=== PATIENT | female | born 1950 | race Caucasian/White ===

== ENCOUNTER → 2019-09-13 | Outpatient (CLI) | payer MEDICARE ==
--- NOTE | 2019-09-22 12:52 | RAD ---
INDICATION: 68 years of age asymptomatic female patient presents for screening mammography. TECHNIQUE: Full field craniocaudal and mediolateral oblique images of both breasts were obtained using digital technique with tomosynthesis and also analyzed with computer-aided detection software. COMPARISON: None available. BREAST COMPOSITION: Category B: There are scattered fibroglandular densities. FINDINGS: Benign calcifications are present. No suspicious masses, microcalcifications or architectural distortion is present to suggest malignancy in either breast. The visualized axillae are unremarkable. IMPRESSION: No mammographic evidence of malignancy. RECOMMENDATION: Annual screening mammography is recommended, unless clinically indicated sooner based on symptoms or change in physical exam. BIRADS 2: BENIGN Electronically signed by: Laith Jameson MD (09/22/2019 12:49 PM) [facility]
== END | disposition home or self-care (01) ==
LOC: MAMMO 09:41
PROVIDERS: ATTEND Specialist
DX: Z12.31 Encounter for screening mammogram for malignant neoplasm of breast (principal)
CPT/HCPCS: 77063; 77067

== ENCOUNTER 2019-10-19 20:24 | Emergency (ER) | payer MEDICARE ==
[~2019-10-19] VITALS: Ht 152.4 cm; Wt 68.2 kg
[2019-10-19] MEDS ORDERED: methylPREDNISolone SOD SUCC PF 125 MG/2 ML VIAL. IV ONE (20:45)
[2019-10-19] MEDS ORDERED: IV NORMAL SALINE 1,000ML 1,000 ML IV ONE (20:45)
[2019-10-19] MEDS ORDERED: FAMOTIDINE 20 MG/2 ML VIAL IVP ONE (20:45)
[2019-10-19] MEDS ORDERED: ONDANSETRON PF 4 MG/2 ML VIAL. ONE (20:53)
[2019-10-19 21:03] VITALS: BP 124/80
--- NOTE | 2019-10-19 22:05 | PHYS DOC ---
Past History Past Medical History: COPD, High Cholesterol Past Surgical History: Hysterectomy Alcohol Use: None Adult General Chief Complaint Chief Complaint: INSECT BITE HPI HPI Patient is a 68-year-old female who presents status post bee sting. Patient reports having bee get stuck in her right sandal and subsequently stinging the ventral portion of her right foot. Patient immediately put baking soda on area, then put Benadryl cream on area, then took 50 mg p.o. Benadryl. Patient reported redness of her foot increased in size which subsequently caused her to have heightened feelings of anxiety and shortness of breath prompting her to report to our ER for evaluation. Patient reports being stung by a bee in the past but never had this type of reaction. She denies any history of anaphylaxis. She has never been intubated. Review of Systems Review of Systems Fourteen body systems of review of systems have been reviewed. See HPI for pertinent positives and negative responses, other castillo all other systems are negative, non-pertinent or non-contributory Current Medications Current Medications Current Medications Medications (Trade) Dose Ordered Sig/Shukri Start Time Stop Time Status Last Admin Dose Admin Famotidine (Pepcid Vial) 20 mg 1X ONCE 10/19/19 20:45 10/19/19 20:47 DC 10/19/19 20:48 20 MG Methylprednisolone Sodium Succinate (SOLU-Medrol 125MG VIAL) 125 mg 1X ONCE 10/19/19 20:45 10/19/19 20:47 DC 10/19/19 20:48 125 MG Ondansetron HCl (Zofran) 4 mg STK-MED ONCE 10/19/19 20:53 10/19/19 20:53 DC Sodium Chloride 1,000 ml @ 1,000 mls/hr 1X ONCE 10/19/19 20:45 10/19/19 21:44 DC 10/19/19 20:48 1,000 MLS/HR Allergies Allergies Allergies Coded Allergies Type Severity Reaction Last Updated Verified No Known Drug Allergies 10/19/19 No Physical Exam Physical Exam Constitutional: Well developed, well nourished, moderate distress, non-toxic appearance. HENT: Normocephalic, atraumatic, bilateral external ears normal, oropharynx moist, no oral exudates, nose normal. Patent airway, no signs suggestive of potential compromise Eyes: PERRLA, EOMI, conjunctiva normal, no discharge. Neck: Normal range of motion, no tenderness, supple, no stridor. Cardiovascular: Heart rate regular, sinus rhythm, no murmurs rubs or gallops Lungs & Thorax: Bilateral breath sounds clear to auscultation Abdomen: Bowel sounds normal, soft, no tenderness, no masses, no pulsatile masses. Nonsurgical abdomen, no peritoneal signs Skin: Warm, dry, no rash. Well-appearing site of bee sting with greater than 5 cm erythema surrounding site, no crepitus, no palpable exudates, no fluctuant mass underneath site of inoculation, no streaking Back: No tenderness, no CVA tenderness. Extremities: No tenderness, no cyanosis, no clubbing, ROM intact, no edema. 2+ pulses bilateral upper and lower extremities Neurologic: Alert and oriented X 3, grossly normal motor & sensory function, no focal deficits noted. Psychologic: Affect normal, judgement normal, mood normal. Current Patient Data Vital Signs Vital Signs Date Time Temp Pulse Resp B/P (MAP) Pulse Ox O2 Delivery O2 Flow Rate FiO2 10/19/19 21:03 98.7 77 28 124/80 (95) 94 EKG EKG [] Radiology/Procedures Radiology/Procedures [] Course & Med Decision Making Course & Med Decision Making Patient seen and evaluated by myself on immediate ED arrival Airway patent, breathing unlabored, vital signs obtained and hemodynamically stable, IV access obtained Comprehensive history and physical exam obtained Decision to administer IV fluids, IV famotidine, and IV Solu-Medrol in light of patient pretreating prior to arrival with 50 mg p.o. Benadryl Patient responded to above therapy well. Reports significant improvement in symptoms during ER stay. Patient reevaluated several times by various members of healthcare team and ultimately felt stable for discharge ED course discussed at length with patient, I to agreed patient was fit for discharge Patient has good follow-up with outpatient PCP. Advised patient to follow-up in upcoming 1 to 7 days Strict return precautions discussed with good understanding by patient. Specifically discussed anaphylaxis at length in addition to less likely development of secondary skin infection at site of bee sting All questions and concerns addressed prior to departure home with in stable condition Saraon Disclaimer Dragon Disclaimer This electronic medical record was generated, in whole or in part, using a voice recognition dictation system. Departure Departure: Impression: Primary Impression: Bee sting reaction Disposition: HOME/RESIDENCE PRIOR TO ADM Condition: IMPROVED Referrals: JUSTUS PATTON MD (PCP) Patient Instructions: Bee, Wasp, or Hornet Sting Additional Instructions: You have been evaluated for your allergic reaction from bee sting. You have been given medications including p.o. Benadryl prior to arrival and subsequently given IV steroids, IV famotidine, and IV fluids. You have been observed in the Emergency Department and it appears that your symptoms will not worsen. As discussed prior to ER departure, please call your primary care physician first thing tomorrow morning to schedule appointment in upcoming 1 to 14 days Return to the Emergency Department if you experience difficulty breathing or swallowing, recurrent vomiting, rashes, lip/mouth/tongue swelling, persistent fevers or for any other concerning symptoms. We marked your foot to evaluate progression in redness. As discussed, it is low likelihood that this bee sting will develop into a subsequent skin infection but it is possible. Please continue to monitor this and call your PCP or our emergency department if you have any questions or concerns. It was a pleasure to take care of you this evening and I hope you continue to feel better! Justification of Admission: Justification of Admission: Justification of Admission Dx: N/A PORFIRIO STEINBERG DO Oct 19, 2019 22:05
== END 2019-10-19 22:13 | disposition home or self-care (01) ==
LOC: ER 20:24
DX: T63.441A Toxic effect of venom of bees, accidental (unintentional), initial encounter (principal); F41.9 Anxiety disorder, unspecified; R06.02 Shortness of breath; J44.9 Chronic obstructive pulmonary disease, unspecified; E78.00 Pure hypercholesterolemia, unspecified; Y92.89 Other specified places as the place of occurrence of the external cause
CPT/HCPCS: 96361; 96374; 96375; 99284; J2930; J3490; J7030

== ENCOUNTER → 2020-06-22 | Outpatient (CLI) | payer MEDICARE ==
--- NOTE | 2020-06-22 11:43 | RAD ---
DG BARIUM ENEMA Indication: Reason: ANEMIC, INCOMPLETE COLONOSCOPY 4.2 MIN OF FLUORO / Spl. Instructions: / History: . Comparison: None. Technique: Double contrast barium enema was performed. Barium tip was inserted into the rectum. Contrast was ins tilled via gravity. Intermittent air was utilized to insufflate the colon. Multiple spot fluoroscopic images were obtained in multiple obliquities. Overhead radiographs were obtained in multiple obliqui ties. Postevacuation images were also obtained. FINDINGS: A preliminary building architectural designer view: Minimal small bowel gas. Air scattered throughout the colon. Nonobstructed bowel gas pattern. Lower lumbar spondylosis. Barium enema was then performed according to the air-contrast technique. Barium and air were instille d into the rectum in a retrograde fashion with filling of the colon from the rectum to the cecum. Sig moid colonic diverticulosis. No obstructing mass or stricture. Difficult opacification of the cecum d ue to patient's inability to tolerate increased air component. The cecum has improved opacification o f posterior evacuation images. Fluoroscopic time: 4.2 minutes Number of fluoroscopic images: 21 IMPRESSION: 1. Degraded evaluation of the cecum. No large obstructing mass or well-defined stricture identified. Recommend follow-up as clinically warranted. 2. Colonic diverticulosis. Electronically signed by: Ivan Ham DO (06/22/2020 11:41 AM) [id number]
== END ==
LOC: RAD 09:43
PROVIDERS: ATTEND Internal Medicine Gastroenterology
DX: K56.699 Other intestinal obstruction unspecified as to partial versus complete obstruction (principal); K57.30 Diverticulosis of large intestine without perforation or abscess without bleeding
CPT/HCPCS: 74270

== ENCOUNTER → 2020-08-15 | Outpatient (CLI) | payer MEDICARE ==
--- NOTE | 2020-08-15 09:46 | RAD ---
EXAM: Chest, 2 views. HISTORY: Cough. COMPARISON: None. FINDINGS: 2 views of the chest are obtained. There is no infiltrate, pleural effusion or pneumothorax . There is emphysema with chronic interstitial changes. There is a large hiatal hernia. IMPRESSION: 1. No acute pulmonary finding. 2. Emphysema with chronic interstitial changes. Electronically signed by: Elizabet Gerard MD (08/15/2020 9:44 AM) [id number]
== END ==
LOC: DXRAD 09:28
PROVIDERS: ATTEND Nurse Practitioner Family
DX: J43.9 Emphysema, unspecified (principal); K44.9 Diaphragmatic hernia without obstruction or gangrene; Z87.09 Personal history of other diseases of the respiratory system
CPT/HCPCS: 71046

== ENCOUNTER → 2020-09-13 | Outpatient (CLI) | payer MEDICARE ==
--- NOTE | 2020-09-13 15:45 | RAD ---
MG BILAT SCREEN+LETY 09/13/2020 11:00 AM INDICATION: Asymptomatic screening mammogram. COMPARISON: 09/13/2019, 06/30/2018 TECHNIQUE: 3D tomosynthesis was performed in CC and MLO projections. 2D views were obtained from the 3D data. CAD was utilized as needed. FINDINGS: Breast density: Category B: There are scattered areas of fibroglandular density. Right breast: There are no suspicious microcalcifications, masses or areas of architectural distortio n. Left breast: There are no suspicious microcalcifications, masses or areas of architectural distortion . Bilateral mammogram is compared to prior examinations appears unchanged. IMPRESSION: Negative bilateral mammogram. BI-RADS category: 1; Negative Recommendations: Recommend annual screening mammography in one year. Electronically signed by: Jessica Murphy MD (09/13/2020 3:43 PM) [id number]
== END ==
LOC: MAMMO 10:49
PROVIDERS: ATTEND Specialist
DX: Z12.31 Encounter for screening mammogram for malignant neoplasm of breast (principal)
CPT/HCPCS: 77063; 77067

== ENCOUNTER 2020-12-14 16:46 | Emergency (ER) | payer MEDICARE ==
[~2020-12-14] VITALS: Ht 152.4 cm; Wt 70.8 kg
[2020-12-14] MEDS ORDERED: IV NORMAL SALINE 1,000ML 1,000 ML IV SCH (17:15)
[2020-12-14] MEDS ORDERED: IOHEXOL 300 MG/ML 75 ML VIAL. IV ONE (17:15)
--- NOTE | 2020-12-14 17:20 | PHYS DOC ---
Past History Past Medical History: COPD, High Cholesterol Additional Past Medical Histor: DIVERTICULOSIS (CAITLIN YU APRN) Past Surgical History: Hysterectomy (CAITLIN YU APRN) Alcohol Use: None (CAITLIN YU APRN) General Adult EDM: Chief Complaint: ABDOMINAL PAIN HPI: HPI: Patient is a 70-year-old female who presents to the emergency department for suprapubic and right lower quadrant pain that started 1 week ago. She is also reporting abdominal distention. She states that she went to see Dr. Patton and she sent her to the ER for possible diverticulitis. Patient denies any alleviating or aggravating factors. She rates her pain 5 out of 10. She states she has been taking Benefiber and stool softeners. Her last normal bowel movement was this morning. Patient denies nausea, vomiting, diarrhea, blood in stools, fevers, pain with urination. (CAITLIN YU APRN) Review of Systems: Review of Systems: 14 body systems of the review of systems have been reviewed. See HPI for pertinent positive and negative responses, otherwise all other systems are negative, nonpertinent or noncontributory (CAITLIN YU APRN) Current Medications: Current Meds: Current Medications Medications (Trade) Dose Ordered Sig/Shukri Start Time Stop Time Status Last Admin Dose Admin Iohexol (Omnipaque 300 Mg/ml) 75 ml 1X ONCE 12/14/20 17:15 12/14/20 17:16 UNV Sodium Chloride 1,000 ml @ 1,000 mls/hr Q1H 12/14/20 17:15 12/14/20 18:14 (CAITLIN YU APRN) Allergies: Allergies: Allergies Coded Allergies Type Severity Reaction Last Updated Verified No Known Drug Allergies 12/14/20 No (CAITLIN YU APRN) Physical Exam: PE: Constitutional: Well developed, well nourished, no acute distress, non-toxic appearance. [] HENT: Normocephalic, atraumatic, bilateral external ears normal, oropharynx moist, no oral exudates, nose normal. [] Eyes: PERRL, EOMI, conjunctiva normal, no discharge. [] Neck: Normal range of motion, no tenderness, supple, no stridor. [] Cardiovascular:Heart rate regular rhythm, no murmur [] Lungs & Thorax: Bilateral breath sounds clear to auscultation [] Abdomen: Bowel sounds normal, soft, suprapubic and right lower quadrant tenderne ss with palpation, negative Rovsing sign, negative rebound tenderness, negative Miranda sign, no masses, no pulsatile masses. [] Skin: Warm, dry, no erythema, no rash. [] Back: No tenderness, no CVA tenderness. [] Extremities: No tenderness, no cyanosis, no clubbing, ROM intact, no edema. [] Neurologic: Alert and oriented X 3, normal motor function, normal sensory function, no focal deficits noted. [] Psychologic: Affect normal, judgement normal, mood normal. [] (CAITLIN YU APRN) Current Patient Data: Labs: Laboratory Tests Test 12/14/20 17:26 White Blood Count 6.3 x10^3/uL Red Blood Count 4.03 x10^6/uL Hemoglobin 13.0 g/dL Hematocrit 39.0 % Mean Corpuscular Volume 97 fL Mean Corpuscular Hemoglobin 32 pg Mean Corpuscular Hemoglobin Concent 33 g/dL Red Cell Distribution Width 13.1 % Platelet Count 229 x10^3/uL Neutrophils (%) (Auto) 49 % Lymphocytes (%) (Auto) 35 % Monocytes (%) (Auto) 13 % Eosinophils (%) (Auto) 2 % Basophils (%) (Auto) 1 % Neutrophils # (Auto) 3.1 x10^3uL Lymphocytes # (Auto) 2.2 x10^3/uL Monocytes # (Auto) 0.8 x10^3/uL Eosinophils # (Auto) 0.2 x10^3/uL Basophils # (Auto) 0.1 x10^3/uL Sodium Level 141 mmol/L Potassium Level 4.1 mmol/L Chloride Level 105 mmol/L Carbon Dioxide Level 27 mmol/L Anion Gap 9 Blood Urea Nitrogen 13 mg/dL Creatinine 0.8 mg/dL Estimated GFR (Cockcroft-Gault) 70.5 BUN/Creatinine Ratio 16 Glucose Level 94 mg/dL Calcium Level 9.3 mg/dL Total Bilirubin 0.9 mg/dL Aspartate Amino Transf (AST/SGOT) 28 U/L Alanine Aminotransferase (ALT/SGPT) 37 U/L Alkaline Phosphatase 124 U/L Total Protein 6.7 g/dL Albumin 3.8 g/dL Albumin/Globulin Ratio 1.3 Lipase 86 U/L Current Medications Medications (Trade) Dose Ordered Sig/Shukri Route PRN Reason Start Time Stop Time Status Last Admin Dose Admin Sodium Chloride 1,000 ml @ 1,000 mls/hr Q1H IV 12/14/20 17:15 12/14/20 18:14 DC 12/14/20 17:24 Iohexol (Omnipaque 300 Mg/ml) 75 ml 1X ONCE IV 12/14/20 17:15 12/14/20 17:22 DC 12/14/20 18:35 Ondansetron HCl (Zofran) 4 mg 1X ONCE IVP 12/14/20 17:30 12/14/20 17:31 DC Fentanyl Citrate (Fentanyl 2ml Vial) 50 mcg 1X ONCE IVP 12/14/20 17:30 12/14/20 17:31 DC Vital Signs: Vital Signs Date Time Temp Pulse Resp B/P (MAP) Pulse Ox O2 Delivery O2 Flow Rate FiO2 12/14/20 17:02 98.6 69 18 116/74 (88) 96 Room Air (CAITLIN YU PIN SORTER AND BAGGER) EKG: EKG: EKG performed by ER staff at 1714 shows sinus rhythm rate of 62, QTc 431, no STEMI read by Dr. Leon at 1719 [] (CAITLIN YU PIN SORTER [employer] BAGGER) Radiology/Procedures: Radiology/Procedures: []PROCEDURE: CT ABD PELV W/ IV CONTRST ONLY Examination: CT of the abdomen pelvis with IV contrast HISTORY: History of right lower quadrant abdominal pain COMPARISON: None available Technique: Axial CT images of the abdomen pelvis were performed with IV contrast. Coronal and sagittal reformats are performed Exposure: One or more of the following individualized dose reduction techniques were utilized for this examination: 1. Automated exposure control 2. Adjustment of the mA and/or kV according to patient size 3. Use of iterative reconstruction technique FINDINGS: The bibasilar lungs are clear. No evidence of free air identified in the abdomen The liver, spleen, adrenals grossly appears unremarkable. The gallbladder is mildly distended Moderate size hiatal hernia. The visualized pancreas grossly appears unremarkable. The small bowel is nondilated. The appendix is dilated measuring 1 cm in transverse dimension with surrounding mild inflammatory fat stranding. Minimal fluid distended small bowel loops identified in the lower abdomen. The bilateral kidneys enhance symmetrically. Mild aortic atherosclerosis Mild degenerative changes thoracolumbar spine. IMPRESSION: 1. Findings consistent with acute appendicitis. 2. Moderate size hiatal hernia. Electronically signed by: Alverto Montalvo MD (12/14/2020 7:10 PM) [id number] DICTATED AND SIGNED BY: ALVERTO MONTALVO MD DATE: 12/14/20 1925 CC: CAITLIN YU APRN; JUSTUS PATTON MD ~MTH0 0 (CAITLIN YU APRN) Heart Score: C/O Chest Pain: No Risk Factors: Risk Factors: DM, Current or recent (<one month) smoker, HTN, HLP, family history of CAD, obesity. Risk Scores: Score 0 - 3: 2.5% MACE over next 6 weeks - Discharge Home Score 4 - 6: 20.3% MACE over next 6 weeks - Admit for Clinical Observation Score 7 - 10: 72.7% MACE over next 6 weeks - Early Invasive Strategies (CAITLIN YU APRN) Course & Med Decision Making: Course & Med Decision Making Pertinent Labs and Imaging studies reviewed. (See chart for details) [] Patient is a 70-year-old female being seen in the ER for abdominal distention and suprapubic and right lower quadrant pain x1 week. Work-up in the ER consisted of blood work, urinalysis and CT imaging of abdomen. CBC and CMP unremarkable. Patient CT scan of abdomen shows acute appendicitis. Her last meal was 12:00 today. I discussed patient's case with Dr. Naylor who agreed to see the patient. He advised placing patient on IV antibiotics. I spoke to Dr. Barfield who is a hospitalist at [facility] and he agreed to accept the patient under his services for [facility]. Patient's vital signs are stable at this time. I discussed patient's findings with her as well as treatm ent plan and she is agreeable to transfer to [facility]. (CAITLIN YU APRN) Course & Med Decision Making Did not see or evaluate patient. Did not discuss patient with WIRE CUTTER. Agree with WIRE CUTTER's work-up and disposition per note (LATOSHA STONER MD) Dragon Disclaimer: Dragon Disclaimer: This electronic medical record was generated, in whole or in part, using a voice recognition dictation system. (CAITLIN YU APRN) Departure Departure: Impression: Primary Impression: Acute appendicitis Qualified Codes: K35.80 - Unspecified acute appendicitis Disposition: 02 SHORT TERM HOSPITAL Condition: STABLE Referrals: JUSTUS PATTON MD (PCP) CAITLIN YU APRN Dec 14, 2020 17:20 LATOSHA STONER MD Dec 14, 2020 20:51
[2020-12-14] MEDS ORDERED: ONDANSETRON PF 4 MG/2 ML VIAL. IVP ONE (17:30)
--- NOTE | 2020-12-14 17:53 | EKG ---
[address] [address] Test Date: 2020-12-14 Test Time: 17:14:32 Pat Name: KIERAN TREADWELL Department: Room: Gender: F [employer] Coordination [employer] Production Head: LEYDI : 1950 Requested By: CAITLIN YU Order Number: [id number] Reading MD: Alon Verma Measurements Intervals [place] Rate: 62 P: 30 ND: 232 QRS: 82 QRSD: 82 T: 6 QT: 422 QTc: 431 Interpretive Statements SINUS RHYTHM PROLONGED ND INTERVAL Electronically Signed On 12-16-2020 16:47:02 CDT by Alon Verma
[2020-12-14 17:58] LABS: BASO # 0.1 x10^3/uL (0.0-0.2); BASO % 1 % (0-3); EOS # 0.2 x10^3/uL (0.0-0.7); EOS % 2 % (0-3); LYMPH # 2.2 x10^3/uL (1.0-4.8); LYMPH % 35 % (24-48); MEAN CORPUSCULAR HEMOGLOBIN 32 pg (25-35); MEAN CORPUSCULAR HGB CONC 33 g/dL (31-37); MEAN CORPUSCULAR VOLUME 97 fL (79-100); MONO # 0.8 x10^3/uL (0.0-1.1); MONO % 13 % (0-9); NEUT # 3.1 x10^3uL (1.8-7.7); NEUT % 49 % (31-73); PLATELET COUNT 229 x10^3/uL (140-400); RED BLOOD COUNT 4.03 x10^6/uL (3.50-5.40); RED CELL DISTRIBUTION WIDTH 13.1 % (11.5-14.5); WHITE BLOOD COUNT 6.3 x10^3/uL (4.0-11.0)
[2020-12-14 18:00] LABS: CALCIUM 9.3 mg/dL (8.5-10.1); CREATININE 0.8 mg/dL (0.6-1.0); GFR 70.5; POTASSIUM 4.1 mmol/L (3.5-5.1)
[2020-12-14 18:06] LABS: ALBUMIN 3.8 g/dL (3.4-5.0); ALBUMIN/GLOBULIN RATIO 1.3 (1.0-1.7); TOTAL BILIRUBIN 0.9 mg/dL (0.2-1.0); TOTAL PROTEIN 6.7 g/dL (6.4-8.2)
--- NOTE | 2020-12-14 19:12 | RAD ---
Examination: CT of the abdomen pelvis with IV contrast HISTORY: History of right lower quadrant abdominal pain COMPARISON: None available Technique: Axial CT images of the abdomen pelvis were performed with IV contrast. Coronal and sagitta l reformats are performed Exposure: One or more of the following individualized dose reduction techniques were utilized for thi s examination: 1. Automated exposure control 2. Adjustment of the mA and/or kV according to patient size 3. Use of iterative reconstruction technique FINDINGS: The bibasilar lungs are clear. No evidence of free air identified in the abdomen The liver, spleen, adrenals grossly appears unremarkable. The gallbladder is mildly distended Moderate size hiatal hernia. The visualized pancreas grossly appears unremarkable. The small bowel is nondilated. The appendix is dilated measuring 1 cm in transverse dimension with surrounding mild inflammatory fat stranding. Minimal fluid distended small bowel loops identified in the lower abdomen. The bilateral kidneys enhance symmetrically. Mild aortic atherosclerosis Mild degenerative changes thoracolumbar spine. IMPRESSION: 1. Findings consistent with acute appendicitis. 2. Moderate size hiatal hernia. Electronically signed by: Alverto Montalvo MD (12/14/2020 7:10 PM) [id number]
[2020-12-14] MEDS ORDERED: IV NORMAL SALINE 50ML 50 ML ONE (19:48)
[2020-12-14] MEDS ORDERED: cefTRIAXone SODIUM 1 GM VIAL ONE (19:49)
[2020-12-14 20:34] LABS: BACTERIA,URINE 0 /HPF (0-FEW); BILIRUBIN,URINE NEG (NEG); CLARITY,URINE CLEAR; COLOR,URINE YELLOW; GLUCOSE,URINE NEG (NEG); NITRITE,URINE NEG (NEG); RBC,URINE 0 /HPF (0-2); SQUAMOUS EPITHELIAL CELL,UR OCC /LPF; UROBILINOGEN,URINE 0.2 mg/dL (0.2 mg/dL); WBC,URINE OCC /HPF (0-4)
[2020-12-14 22:10] VITALS: BP 138/76
== END 2020-12-14 22:11 | disposition short-term general hospital (02) ==
LOC: ER 16:46
DX: K35.80 Unspecified acute appendicitis (principal); J44.9 Chronic obstructive pulmonary disease, unspecified; E78.00 Pure hypercholesterolemia, unspecified; Z20.822 Contact with and (suspected) exposure to COVID-19
CPT/HCPCS: 36415; 74177; 80053; 81001; 83690; 85025; 87426; 93005; 96361; 96365; 96368; 99285; C9803; J0696; J3490; J7030; Q9967; U0003

== ENCOUNTER → 2021-02-05 | Outpatient (CLI) | payer MEDICARE ==
--- NOTE | 2021-02-05 14:02 | RAD ---
EXAM: CT CHEST WITHOUT CONTRAST (LDCT LUNG CANCER SCREENING). HISTORY: Risk factors for pulmonary malignancy. Long-term smoker TECHNIQUE: CT of the chest was performed without intravenous contrast using a low-dose lung screening protocol. Findings analysis is based on ACR Lung-RADS v1.1. *One or more of the following individual ized dose reduction techniques were utilized for this examination: 1. Automated exposure control. 2. Adjustment of the mA and/or kV according to patient size. 3. Use of iterative reconstruction technique. COMPARISON: None. FINDINGS: Nodules: No pulmonary nodules or masses are identified. Other findings: Images of the upper abdomen reveal no acute abnormality. Hiatal hernia noted, unchang ed with respect to comparison study. Bone windows reveal no suspicious lesions. Significant emphysematous changes noted throughout the lungs. No focal infiltrates, effusion, or pneu mothorax is seen. Normal. No pulmonary parenchymal process is identified. IMPRESSION/RECOMMENDATION: 1. No pulmonary nodules are identified. ACR Lung-RADS category: 1 Continue annual screening with LDCT in 12 months. 2. Emphysema 3. Hiatal hernia Electronically signed by: Lexa Mitchell MD (02/05/2021 1:59 PM) [id number]
--- NOTE | 2021-02-05 14:50 | RAD ---
INDICATION: Screening for osteopenia/osteoporosis. Postmenopausal screening COMPARISON: None. TECHNIQUE: Bone densitometry was performed through the lumbar spine and proximal femur. IMPRESSION: Lumbar Spine: BMD: 1.06 T-Score: -1.0 Range: Osteopenic Proximal Femur: BMD: 0.95 T-Score: -0.1 Range: Normal World Health Organization Criteria for Bone Density: T-Score: > -1.0: Normal Range < -1.0 to -2.5: Osteopenic Range < -2.5: Osteoporotic Range Electronically signed by: Gregor Vasquez MD (02/05/2021 2:48 PM) [id number]
== END ==
LOC: CT 09:41
PROVIDERS: ATTEND Specialist
DX: Z12.2 Encounter for screening for malignant neoplasm of respiratory organs (principal); K44.9 Diaphragmatic hernia without obstruction or gangrene; J43.9 Emphysema, unspecified; M81.0 Age-related osteoporosis without current pathological fracture; M85.80 Other specified disorders of bone density and structure, unspecified site; Z87.891 Personal history of nicotine dependence
CPT/HCPCS: 71271; 77080